=== PATIENT | male | born 1975 | race Caucasian/White ===

== ENCOUNTER → 2023-09-08 | Outpatient (CLI) | payer OTHER ==
[~2023-09-08] MED LIST: HYDHCL25 PO; PRED20 PO; Prednisone10 MG PO; TRIA80TC TOP
[2023-09-08 19:11] LABS: International Normalized Ratio 2.9; Prothrombin Time Results 28.7 Sec (9.7-11.5)
== END | disposition home or self-care (01) ==
LOC: LAB SHORT 17:57 → LAB 17:57
PROVIDERS: Hospitalist
DX: Q23.1 Congenital insufficiency of aortic valve (principal)
CPT/HCPCS: 85610